=== PATIENT | male | born 1940 | race Caucasian/White ===

== ENCOUNTER 2018-11-15 09:01 | Day surgery (SDC) | payer OTHER ==
[~2018-11-15] VITALS: Ht 165.1 cm; Wt 84.8 kg
[~2018-11-15 09:01] MED LIST: AMLO10 PO; ASCO500 PO; ASPI81CH PO; ATEN100 PO; CARB10OTL BOTHEARS; CLON.1 PO; CRANBERRY250 MG PO; Garlic Oil1000 MG PO; HYDCHL12.5 PO; LISI20 PO; METF500C PO
--- NOTE | 2018-11-15 09:58 | NUR ---
History, Chart, Medications and Allergies reviewed before start of procedure. Lungs clear T/O to Auscultation. Patient confirms NPO status and agrees with scheduled surgery. Patient reports completing Chlorhexadine shower X2 prior to admission to hospital. Patient States Post-Procedure ride home has been arranged.
--- NOTE | 2018-11-15 11:08 | NUR ---
PT HR 46 DR CERVANTES STATES THAT PT WAS LINDA DURING PROCEDURE. LONG PT BP IS STABLE AND PT STABLE WILL NOT TX HR. PT LAYING FLAT WITH NO COMPLAINTS.
--- NOTE | 2018-11-15 12:17 | NUR ---
"DAY SURGERY RN | Patient discharged Discharge instructions given to patient. VSS, with some bradycardia that Dr. Abbott okayed as long as everything else was normal since the patient was cynthia before surgery. Tolerating PO fluids, crackers. Site C/D/I. Steady on feet. Taken in wheelchair to front entrance by volunteer, family is ride. No issues in stepdown."
== END 2018-11-15 22:44 | disposition home or self-care (01) ==
LOC: ORSCMMR 09:01 → ORD 10:30 → ORSCMMR 10:30
PROVIDERS: Surgery
PROC: 0DB60ZZ Excision of Stomach, Open Approach (ICD-10-PCS; principal; 2018-11-15 10:30)
DX: E85.9 Amyloidosis, unspecified (principal); E78.5 Hyperlipidemia, unspecified; E11.9 Type 2 diabetes mellitus without complications; D64.9 Anemia, unspecified; E66.9 Obesity, unspecified; Z68.31 Body mass index [BMI] 31.0-31.9, adult; Z79.82 Long term (current) use of aspirin; Z79.899 Other long term (current) drug therapy
CPT/HCPCS: 82947; 88304; 88313; J0690; J2250; J7120

== ENCOUNTER 2021-03-31 07:38 | Day surgery (SDC) | payer OTHER ==
[2021-03-30 09:51] LABS: Albumin, Blood 2.7 g/dL (3.4-5.0); Albumin/Globulin Ratio 0.8 (0.8-1.8); Bilirubin, Total 0.7 mg/dL (0.1-1.0); Bun/Creatinine Ratio 24.1 (12.0-20.0); Calcium, Blood 8.8 mg/dL (8.5-10.1); Creatinine, Blood 2.95 mg/dL (0.60-1.20); Globulin, Blood 3.6 g/dL (2.2-4.0); Potassium, Blood 4.3 mmol/L (3.5-5.5); Total Protein, Blood 6.3 g/dL (6.4-8.2)
[2021-03-30 09:53] LABS: BASOPHILS ABSOLUTE AUTO 0.02 K/mm3 (0.00-0.23); BASOPHILS PERCENT AUTO 0 % (0-2); Hematocrit 20.9 % (37.0-53.0); Hemoglobin 6.9 g/dL (13.5-17.5); LYMPHOCYTES ABSOLUTE AUTO 0.35 K/mm3 (0.84-5.20); LYMPHOCYTES PERCENT AUTO 6 % (21-46); MONOCYTES ABSOLUTE AUTO 0.46 K/mm3 (0.16-1.47); MONOCYTES PERCENT AUTO 7 % (4-13); Mean Corpuscular HGB 29.7 pg (26.0-34.0); Mean Corpuscular Volume 90 fL (80-100); Mean Platelet Volume 11.6 fL (9.1-12.4); NRBC ABSOLUTE 0.05 K/mm3 (0.00-0.02); NRBC Auto 0.8 /100 WBC (0.0-0.2); Platelet Count 123 K/mm3 (150-400); RDW Standard Deviation 58.1 fL (35.1-46.3); Red Blood Cell Count 2.32 M/mm3 (4.30-5.90); White Blood Cell Count 6.33 K/mm3 (4.00-11.30)
[2021-03-30 10:20] LABS: EOSINOPHILS PERCENT AUTO 0 % (0-6); IMMATURE GRAN ABSOLUTE AUTO 0.33 K/mm3 (0.00-0.10); IMMATURE GRAN PERCENT AUTO 5 % (0-1); NEUTROPHILS ABSOLUTE AUTO 5.17 K/mm3 (1.96-9.15); NEUTROPHILS PERCENT AUTO 82 % (41-73)
[2021-03-30 13:24] LABS: BASOPHILS PERCENT MAN 0 % (0-2); EOSINOPHILS PERCENT MAN 0 % (0-6); LYMPHOCYTES ABSOLUTE MAN 0.06 K/mm3 (0.84-5.20); LYMPHOCYTES PERCENT MAN 1 % (21-46); METAMYELOCYTE ABSOLUTE MAN 0.06 K/mm3 (0.00-0.00); METAMYELOCYTE PERCENT MAN 1 % (0-0); MONOCYTES ABSOLUTE MAN 0.12 K/mm3 (0.16-1.47); MONOCYTES PERCENT MAN 2 % (4-13); NEUTROPHILS ABSOLUTE MAN 6.07 K/mm3 (1.96-9.15); SEG NEUTROPHILS PERCENT MAN 96 % (41-73); TOTAL CELLS COUNTED 100
[~2021-03-31 07:38] MED LIST changes: -ASPI81CH PO; +Aspirin EC81 MG PO
[2021-03-31] MEDS ORDERED: ACYC400 PO (11:51)
[2021-03-31] MEDS ORDERED: HEMADY20 MG PO (11:52)
[2021-03-31] MEDS ORDERED: OMEP20ER PO (11:52)
[2021-03-31] MEDS ORDERED: ELIQUIS2.5 MG (11:53)
[2021-03-31] MEDS ORDERED: POTA8 (11:53)
[2021-04-01 14:09] LABS: A/G RATIO 1.1 (0.7-1.7); ALBUMIN 2.8 g/dL (2.9-4.4); ALPHA-1-GLOBULIN 0.4 g/dL (0.0-0.4); ALPHA-2-GLOBULIN 0.9 g/dL (0.4-1.0); BETA GLOBULIN 0.8 g/dL (0.7-1.3); GAMMA GLOBULIN 0.8 g/dL (0.4-1.8); GLOBULIN, TOTAL 2.8 g/dL (2.2-3.9); IMMUNOGLOBULIN A, QN, SERUM 151 mg/dL (61-437); IMMUNOGLOBULIN G, QN, SERUM 807 mg/dL (603-1613); IMMUNOGLOBULIN M, QN, SERUM 45 mg/dL (15-143); M-SPIKE Not Observed g/dL (Not Observed); PROTEIN, TOTAL, SERUM 5.6 g/dL (6.0-8.5)
== END 2021-03-31 11:21 | disposition home or self-care (01) ==
LOC: ATC 07:38 → EDSTATUS 08:30 → ATC 11:21
PROVIDERS: Internal Medicine Hematology & Oncology
DX: C90.02 Multiple myeloma in relapse (principal); I12.9 Hypertensive chronic kidney disease with stage 1 through stage 4 chronic kidney disease, or unspecified chronic kidney disease; E11.22 Type 2 diabetes mellitus with diabetic chronic kidney disease; N18.9 Chronic kidney disease, unspecified; D63.1 Anemia in chronic kidney disease; E78.5 Hyperlipidemia, unspecified; K21.9 Gastro-esophageal reflux disease without esophagitis; Z87.891 Personal history of nicotine dependence; Z79.01 Long term (current) use of anticoagulants
CPT/HCPCS: 36415; 36430; 80053; 85025; 86850; 86900; 86901; 86923; J7050; P9016

== ENCOUNTER 2021-04-21 02:30 | Day surgery (SDC) | payer OTHER ==
[~2021-04-21 02:30] MED LIST changes: +ACYC400 PO; +ELIQUIS2.5 MG; +HEMADY20 MG PO; +OMEP20ER PO; +POTA8
== END 2021-04-21 15:30 | disposition home or self-care (01) ==
LOC: ATC 02:30
DX: D64.9 Anemia, unspecified (principal); C90.02 Multiple myeloma in relapse; I12.9 Hypertensive chronic kidney disease with stage 1 through stage 4 chronic kidney disease, or unspecified chronic kidney disease; E11.22 Type 2 diabetes mellitus with diabetic chronic kidney disease; N18.9 Chronic kidney disease, unspecified; K21.9 Gastro-esophageal reflux disease without esophagitis; Z87.891 Personal history of nicotine dependence; E78.5 Hyperlipidemia, unspecified
CPT/HCPCS: 36430; 86850; 86900; 86901; 86923; J7050; P9016

== ENCOUNTER 2021-05-20 13:52 | Emergency (ER) | payer OTHER ==
[~2021-05-20] VITALS: Ht 170.2 cm; Wt 88.5 kg
[~2021-05-20 13:52] MED LIST changes: -ELIQUIS2.5 MG; +ELIQUIS2.5 MG PO; -POTA8; +POTA8 PO
[2021-05-20] MEDS ORDERED: Amiodarone HCl200 MG PO (14:32)
[2021-05-20] MEDS ORDERED: ASPI81CH PO (14:33)
[2021-05-20] MEDS ORDERED: ATOR80 PO (14:33)
[2021-05-20] MEDS ORDERED: DOCU100 PO (14:35)
[2021-05-20] MEDS ORDERED: PROCRIT40000 UNIT INJ (14:36)
[2021-05-20] MEDS ORDERED: FURO40 PO (14:37)
[2021-05-20] MEDS ORDERED: HYDR1TAB94 PO (14:38)
[2021-05-20] MEDS ORDERED: HYDRA25 PO (14:39)
[2021-05-20] MEDS ORDERED: METO25 PO (14:39)
[2021-05-20] MEDS ORDERED: TAMS.4ER PO (14:41)
[2021-05-20] MEDS ORDERED: PRED20 PO (14:41)
== END 2021-05-20 15:43 | disposition home or self-care (01) ==
LOC: ER 13:52
DX: S00.01XA Abrasion of scalp, initial encounter (principal); I12.9 Hypertensive chronic kidney disease with stage 1 through stage 4 chronic kidney disease, or unspecified chronic kidney disease; E11.22 Type 2 diabetes mellitus with diabetic chronic kidney disease; N18.30 Chronic kidney disease, stage 3 unspecified; D63.1 Anemia in chronic kidney disease; I25.10 Atherosclerotic heart disease of native coronary artery without angina pectoris; E78.5 Hyperlipidemia, unspecified; E66.01 Morbid (severe) obesity due to excess calories; Z95.1 Presence of aortocoronary bypass graft; Z88.8 Allergy status to other drugs, medicaments and biological substances; Z88.5 Allergy status to narcotic agent; Z79.899 Other long term (current) drug therapy; Z87.891 Personal history of nicotine dependence; Z79.82 Long term (current) use of aspirin; Z79.01 Long term (current) use of anticoagulants; W18.30XA Fall on same level, unspecified, initial encounter
CPT/HCPCS: 70450; 72125; 99285-25

== ENCOUNTER → 2021-08-03 | Outpatient (CLI) | payer OTHER ==
[~2021-08-03] MED LIST changes: +ASPI81CH PO; +ATOR80 PO; +Amiodarone HCl200 MG PO; +DOCU100 PO; +FURO40 PO; +HYDR1TAB94 PO; +HYDRA25 PO; +METO25 PO; +PRED20 PO; +PROCRIT40000 UNIT INJ; +TAMS.4ER PO
[2021-08-06 12:11] LABS: M-SPIKE, % 6.2 % (Not Observed); M-SPIKE, MG/24 HR 20.7 mg/24 hr (Not Observed); PROTEIN,TOTAL,URINE 22.3 mg/dL (Not Estab.)
== END | disposition home or self-care (01) ==
LOC: LAB 07:30 → LAB SHORT 07:30 → LAB FUT 05-07 11:00
PROVIDERS: Internal Medicine Hematology & Oncology
DX: C90.02 Multiple myeloma in relapse (principal)
CPT/HCPCS: 81050; 84156; 84166

== ENCOUNTER → 2025-06-06 | Outpatient (CLI) | payer OTHER ==
[2025-06-10 16:01] LABS: ALBUMIN %,URINE 56.3 %; ALPHA-1 %,URINE 4.8 %; ALPHA-2 %,URINE 8.3 %; BETA GLOBULIN %,URINE 14.4 %; GAMMA GLOBULIN %,URINE 16.2 %; HOURS COLLECTED 24 hr; PARAPROTEIN %,URINE 6.5 %; PARAPROTEIN EXCRETION/24 HOUR 103.7
== END ==
LOC: LAB SHORT 07:45 → LAB 07:45
PROVIDERS: Nurse Practitioner
DX: C90.02 Multiple myeloma in relapse (principal)
CPT/HCPCS: 81050; 84156; 84166; 86335

== ENCOUNTER 2025-06-12 11:47 | Emergency (ER) | payer OTHER ==
[~2025-06-12] VITALS: Ht 170.2 cm; Wt 92.1 kg
[2025-06-12] MEDS ORDERED: Lidocaine/Tetracaine/Epinephr 3 ML GEL SYRINGE TOP ONE (12:55)
[2025-06-12 15:05] VITALS: BP 177/71
== END 2025-06-12 15:06 | disposition home or self-care (01) ==
LOC: ER 11:47
DX: S01.01XA Laceration without foreign body of scalp, initial encounter (principal); S93.401A Sprain of unspecified ligament of right ankle, initial encounter; E78.5 Hyperlipidemia, unspecified; E11.22 Type 2 diabetes mellitus with diabetic chronic kidney disease; I12.9 Hypertensive chronic kidney disease with stage 1 through stage 4 chronic kidney disease, or unspecified chronic kidney disease; N18.30 Chronic kidney disease, stage 3 unspecified; W01.0XXA Fall on same level from slipping, tripping and stumbling without subsequent striking against object, initial encounter; Z79.52 Long term (current) use of systemic steroids; Z79.899 Other long term (current) drug therapy; Z79.82 Long term (current) use of aspirin; Z88.5 Allergy status to narcotic agent; Z88.8 Allergy status to other drugs, medicaments and biological substances
CPT/HCPCS: 12002; 70450; 72125; 73610; 90471; 90715; 93005; 93010; 99283-25